=== PATIENT | female | born 2000 | race Caucasian/White ===

== ENCOUNTER → 2024-10-23 15:43 | Outpatient (REF) | payer OTHER, SELFPAY | LOC: PNTC 15:43 | PROVIDERS: ATTENDING PHYSICIAN Advanced Practice Midwife | DX: Z36.0 Encounter for antenatal screening for chromosomal anomalies (principal) | CPT/HCPCS: 76805; 76817 ==

== ENCOUNTER → 2024-12-11 07:07 | Outpatient (REF) | payer OTHER, SELFPAY | LOC: REG 07:07 | PROVIDERS: ATTENDING PHYSICIAN Obstetrics & Gynecology; FAMILY PHYSICIAN Advanced Practice Midwife | DX: Z34.02 Encounter for supervision of normal first pregnancy, second trimester (principal) | CPT/HCPCS: 36415; 86850; 86900; 86901; J2790 ==

== ENCOUNTER → 2025-02-07 11:09 | Outpatient (REF) | payer OTHER, SELFPAY | LOC: PNTC 11:09 | PROVIDERS: ATTENDING PHYSICIAN Advanced Practice Midwife | DX: O32.1XX0 Maternal care for breech presentation, not applicable or unspecified (principal); O32.2XX0 Maternal care for transverse and oblique lie, not applicable or unspecified; O32.0XX0 Maternal care for unstable lie, not applicable or unspecified | CPT/HCPCS: 76815 ==

== ENCOUNTER → 2025-03-13 09:27 | Outpatient (REF) | payer OTHER, SELFPAY | LOC: PNTC 09:27 | PROVIDERS: ATTENDING PHYSICIAN Advanced Practice Midwife | DX: O48.0 Post-term pregnancy (principal) | CPT/HCPCS: 59025; 76815 ==

== ENCOUNTER 2025-03-13 22:18 | Inpatient (IN) | payer OTHER, SELFPAY ==
[2025-03-13 22:30] VITALS: BP 135/80; BMI 37.4
[2025-03-13 23:59] LABS: Hematocrit 35.2 % (37.0-47.0); Hemoglobin 12.3 g/dL (12.0-16.0); Mean Corp Hgb Conc. 34.9 g/dL (33.0-37.0); Mean Corpuscular Volume 87.8 fL (81.0-99.0); Nucleated Red Blood Cells % 0 %; Platelet Count 177 10^3/uL (130-400); Red Cell Dist. Width 13.6 % (11.5-14.5)
[2025-03-14] MEDS: LR 1000 IV ×3 (03:20→20:39)
[2025-03-14] MEDS: STADOL 1 MG IV (21:33)
[2025-03-14] MEDS: PITOCIN 30 UNITS/NSS 500 ML IV (21:38)
[2025-03-14] MEDS: SUBLIMAZE 100 MCG EPIDURAL (22:51)
[2025-03-14] MEDS: FENTANYL/BUPIVACAINE 100 EPIDURAL (22:52)
[2025-03-15] MEDS: FENTANYL/BUPIVACAINE 100 EPIDURAL (06:43)
[2025-03-15] MEDS: LR 1000 IV (07:35)
[2025-03-15] MEDS: BICITRA 30 ML PO (11:20)
[2025-03-15] MEDS: TYLENOL 975 MG PO (11:20)
[2025-03-15] MEDS: ZITHROMAX INFUSION 250 IV (11:24)
[2025-03-15] MEDS: ANCEF 10 IV (11:26)
[2025-03-15 13:02] LABS: Syphilis/T. pallidum Ab Reflex Negative (Negative)
[2025-03-15] MEDS: TYLENOL 650 MG PO ×2 (15:59→22:38)
[2025-03-15] MEDS: TORADOL 15 MG IV (17:35)
[2025-03-15] MEDS: COLACE 100 MG PO (19:44)
[2025-03-16] MEDS: TORADOL 15 MG IV ×3 (00:08→12:00)
[2025-03-16] MEDS: FLUSH (NSS) 3 FLUSH IV ×2 (00:10→05:49)
[2025-03-16 04:43] LABS: Hematocrit 30.3 % (37.0-47.0); Hemoglobin 10.5 g/dL (12.0-16.0); Mean Corp Hgb Conc. 34.7 g/dL (33.0-37.0); Mean Corpuscular Volume 89.1 fL (81.0-99.0); Platelet Count 145 10^3/uL (130-400); Red Cell Dist. Width 13.9 % (11.5-14.5)
[2025-03-16] MEDS: COLACE 100 MG PO ×2 (08:32→19:29)
--- NOTE | 2025-03-16 10:01 | W.PN.ANS.POP ---
Anesthesia Post Operative
- Anesthesia Post Op Note
Vital Signs Stable-See Nursing Note: Yes
Airway Patent: Yes
Adequate Pain Control: Yes
Change in Mental Status: No
Current Postoperative Nausea & Vomiting: No
Anesthesia Complications: No
General Anesthetic Recall: No
Unplanned Admission: No
Post Op Hydration Adequate: Yes
[2025-03-16] MEDS: MOTRIN 600 MG PO (23:24)
[2025-03-17] MEDS: COLACE PO (08:16)
== END 2025-03-17 10:28 | disposition home or self-care (01) | DRG 788 ==
LOC: LDRP 22:18
PROVIDERS: Obstetrics & Gynecology; ADMITTING PHYSICIAN Advanced Practice Midwife
PROC: 10D00Z1 Extraction of Products of Conception, Low, Open Approach (ICD-10-PCS; 2025-03-15)
DX: O48.0 Post-term pregnancy (principal); Z3A.40 40 weeks gestation of pregnancy; Z37.0 Single live birth; O69.81X0 Labor and delivery complicated by cord around neck, without compression, not applicable or unspecified; O77.0 Labor and delivery complicated by meconium in amniotic fluid; O62.1 Secondary uterine inertia
CPT/HCPCS: 36415; 59025; 85025; 85027; 86780; 86850; 86870; 86900; 86901; 88307

== ENCOUNTER 2025-03-27 20:56 | Emergency (ER) | payer OTHER, SELFPAY ==
[2025-03-27 21:01] VITALS: BP 158/105
[2025-03-27 21:17] LABS: Hematocrit 40.4 % (37.0-47.0); Hemoglobin 13.8 g/dL (12.0-16.0); Mean Corp Hgb Conc. 34.2 g/dL (33.0-37.0); Mean Corpuscular Volume 89.6 fL (81.0-99.0); Nucleated Red Blood Cells % 0 %; Platelet Count 318 10^3/uL (130-400); Red Cell Dist. Width 13.0 % (11.5-14.5)
[2025-03-27 21:48] VITALS: BMI 32.9
[2025-03-27 21:48] LABS: ALT (SGPT) 22 U/L (0-35); AST (SGOT) 22 U/L (14-36); Albumin 4.4 g/dl (3.5-5.0); Alkaline Phosphatase 95 U/L (38-126); Blood Urea Nitrogen 23 mg/dl (7-17); Calcium 10.4 mg/dl (8.4-10.2); Carbon Dioxide 27 mmol/L (22-30); Chloride 105 mmol/L (98-107); Glucose 98 mg/dl (70-99); Potassium 4.2 mmol/L (3.5-5.1); Sodium 138 mmol/L (135-145); Total Protein 7.3 g/dl (6.3-8.2); eGFR > 60.00
[2025-03-27 21:54] VITALS: BP 125/89
--- NOTE | 2025-03-27 23:10 | ED.GENMED ---
History of Present Illness
General
Chief Complaint: Post Operative Problem(s)
Time Seen by Provider: 03/27/25 22:54
History of Present Illness
History of Present Illness:
See MDM
Past History
Past History
ED Past Medical History: None
ED Past Surgical History:
Social History
Tobacco: Non-smoker
Alcohol: None
Phy Exam
Physical Exam
Physical Exam:
See MDM
Course
Orders/Labs/Results
Orders:
Orders
03/27/25 21:06
CMP [Comprehensive Metabolic Panel] Urgent
Complete Blood Count/With Diff Urgent
Abnormal Lab Results
03/27/25
21:06
WBC 12.8 H 10^3/uL
(4.8-10.8)
Abs Immat Gran (auto) 0.1 H 10^3/uL
(0-0.05)
Absolute Neuts (auto) 7.6 H 10^3/uL
(1.4-6.5)
Absolute Lymphs (auto) 4.0 H 10^3/uL
(1.2-3.4)
Absolute Monos (auto) 0.9 H 10^3/uL
(0.1-0.6)
BUN 23 H mg/dl
(7-17)
Calcium 10.4 H mg/dl
(8.4-10.2)
03/27/25 21:06
03/27/25 21:06
Vital Signs
Initial and Last Documented VS:
Initial Vital Signs
Temp Pulse Resp BP Pulse Ox
98.1 F 84 20 158/105 97
03/27/25 21:01 03/27/25 21:01 03/27/25 21:01 03/27/25 21:01 03/27/25 21:01
Last Documented Vital Signs
Temp Pulse Resp BP Pulse Ox
98.1 F 92 20 125/89 97
03/27/25 21:01 03/27/25 21:54 03/27/25 21:01 03/27/25 21:54 03/27/25 21:56
MDM/Problems Addressed
Differential Diagnosis Includes:
Note:
CHIEF COMPLAINT(S)
wound discharge and irritation.
HISTORY OF PRESENT ILLNESS
The patient is a 24-year-old female, two weeks , who presents with discharge and irritation at the wound site. The symptoms began today. The patient describes the sensation as irritation rather than pain. There was an observation of pus
discharge near the wound, specifically around two audra. The patient has not yet been seen by a decorator inspector for this issue but is scheduled for staple removal on Tuesday. There was uncertainty about the presence of fever, as the patients home
thermometer readings were inconsistent, showing 101�F in one ear and normal in the other. The patient took 200 milligrams of ibuprofen prior to the visit, which provided some relief. No significant increase in vaginal discharge or bleeding was noted
beyond expectations.
MEDICATIONS
The patient takes [id number] medications like Tylenol and Motrin (Ibuprofen).
PHYSICAL EXAM
General: Alert, no acute distress.
Skin: Warm, dry.
Head: Normocephalic, atraumatic
Neck: Appears supple, trachea midline.
Eyes, Ears, Nose, Mouth, and Throat: Oral mucosa moist.
Cardiovascular: No signs of cyanosis
Respiratory: Respirations are non-labored.
Abdomen: Non-distended. incision clean and intact. Local irritation to the right lateral aspect around 2 of the adura. No discharge. No significant tenderness
Musculoskeletal: No deformities
Neurological: No focal neurological deficit observed.
Psychiatric: Cooperative, appropriate mood and affect.
PLAN
- Consult Obstetrics/Gynecology to evaluate the wound site and determine if further imaging, such as a CT scan, is necessary.
- Follow-up for scheduled staple removal on Tuesday.
- Symptomatic treatment with [id number] pain medications as needed.
DIFFERENTIAL DIAGNOSIS
The Differential Diagnosis includes, in no particular order and is not limited to:
- wound infection
- Seroma formation
- Hematoma
- Puerperal fever
- Endometritis
- Urinary tract infection
- Mastitis
- Thrombophlebitis
- Retained products of conception
- Cellulitis
Disposition:
SUMMARY OF ENCOUNTER
The patient, a 24-year-old female, was evaluated in the emergency department for concerns of wound discharge and irritation. Upon examination, the incision site appeared clean and intact, with no expressible pus. The patients abdomen was
benign and she was afebrile during the visit. After consultation with the Obstetrics/Gynecology ([facility]) department, it was determined that there was no obvious source of infection, and clinical treatment would be pursued without the use of
antibiotics. Routine follow-up with her [facility] was recommended.
DISPOSITION
The patient is to follow up with her [facility] for routine assessment.
MANAGEMENT OF THE PATIENTS CARE WAS DISCUSSED WITH
The case was discussed with the [facility] department.
PLAN
Routine follow-up with the patients [employer]GRAMMER is recommended to monitor the wound site and overall recovery.
PATIENT EDUCATION AND COUNSELING
The patient was informed that the incision appeared clean and intact, with no signs of infection currently visible. She was advised about the importance of follow-up with her [facility] to ensure proper healing and care.
FOLLOW-UP INSTRUCTIONS
Follow up with [facility] as scheduled for wound assessment and care.
MEDICATION RECONCILIATION
No antibiotics or additional medications were prescribed during this visit.
MEDICAL DECISION MAKING
- Complex of Data Reviewed: wound infection, seroma formation, hematoma, puerperal fever, endometritis, urinary tract infection, mastitis, thrombophlebitis, retained products of conception, cellulitis.
- Data:
Category 3
Discussion of management with [facility] department regarding treatment approach and follow-up.
-Risk:
Consideration of admission/observation: Escalation of care including admission/observation was considered given the complexity and risk of the patients presenting complaint, exam findings, and underlying comorbidities. However, it was ultimately
determined that the patient is safe for outpatient management with close follow-up. Reasoning: Work-up is reassuring, revealing no acute life/organ-threatening processes, the patients symptoms are well controlled upon reevaluation, reexamination is
reassuring, vitals are stable, the patient agrees with discharge, reliable for follow-up.
DIAGNOSIS
wound issue - Z48.89 (Other specified surgical aftercare)
*Pulse Oximetry
SaO2: 97
Oxygen Mode of Delivery: Room air
Patient hypoxic: no
*Critical Care Note
Total Time (30-74mins, 75-104mins- exclusive of procedures): Not Applicable
ED Attending Note
-
Portions of this chart may have been created with voice recognition software.� Occasional wrong word or��sound alike� substitutions may have occurred due to the inherent limitations of voice recognition software.
Discharge Plan
Departure
Patient Disposition: Home (Routine Discharge)
Date of Disposition: 03/27/25
Time of Disposition: 23:22
Patient with high blood pressure during this ER visit?: No
Discharge Problem:
section wound complication
Prescriptions:
No Action
acetaminophen 325 mg Tablet
650 mg PO Q4HPRN PRN (Reason: mild pain) Qty: 30 0RF
docusate sodium 100 mg Capsule
100 mg PO BID Qty: 20 0RF
ibuprofen 600 mg Tablet
600 mg PO Q6HPRN PRN (Reason: cramps) Qty: 30 0RF
Referrals:
Karolina March CNM [Family Provider, Obstetric[facility]]
Activity Restrictions/Additional Instructions:
Please return for any worsening symptoms.
You may return at any time if you have further concerns.
Please follow up with your [facility].
Thank you for choosing [facility].
Interventions
Interventions:
*Risk Screen - Suicide Last Done: 03/27/25 21:49
*General Assessment Last Done: 03/27/25 21:01
*Neglect/Abuse Screening Last Done: 03/27/25 21:49
*ED- Fall Risk Assessment Last Done: 03/27/25 21:49
*ED COVID-19 Vaccine History Last Done: 03/27/25 21:49
ED-Skin Assessment Last Done: 03/27/25 21:54
Discharge Date and Time
Print Language: LIBERIAN
[2025-03-27 23:45] VITALS: BP 118/75
== END 2025-03-28 00:02 | disposition home or self-care (01) ==
LOC: EMR 20:56
PROVIDERS: EMERGENCY PHYSICIAN Student in an Organized Health Care Education/Training Program; FAMILY PHYSICIAN Family Medicine; REFERRING PHYSICIAN Advanced Practice Midwife
DX: O90.89 Other complications of the puerperium, not elsewhere classified (principal)
CPT/HCPCS: 99283; 80053; 85025